=== PATIENT | female | born 1995 | race Caucasian/White ===

== ENCOUNTER 2018-01-11 14:52 | Emergency (ER) | payer OTHER ==
[~2018-01-11] VITALS: Ht 154.9 cm; Wt 83.6 kg
[~2018-01-11 14:52] MED LIST: AMOXICILLIN500 MG PO; DEPO-PROVER150 MG/ML IM; Motrin PO; PRENATAL 19 CH1 EACH PO; PROVENTIL,200 INHALA IH; SINGULAIR5 MG PO; birth control
[2018-01-11 16:32] LABS: CHLORIDE 109 mEq/L (99-109); SODIUM 143 mEq/L (136-147)
[2018-01-11 16:34] LABS: GLUCOSE 71 mg/dL (70-99)
[2018-01-11 16:38] LABS: CREATININE 0.8 mg/dL (0.6-1.3); GFR ESTIMATE (CALCULATED) > 59 mL/min/
[2018-01-11 16:39] LABS: UREA NITROGEN (BUN) 10 mg/dL (9-23)
[2018-01-11 18:07] VITALS: BP 120/65
== END 2018-01-11 18:08 | disposition home or self-care (01) ==
LOC: EME 14:52
PROVIDERS: Physician Assistant
DX: M79.89 Other specified soft tissue disorders (principal); R60.0 Localized edema
CPT/HCPCS: 80048; 93970; 99281; 99284